=== PATIENT | female | born 1945 | race African-American/Black ===

== ENCOUNTER 2019-03-18 00:21 | Emergency (ER) | payer BC, MEDICARE ==
[2019-03-18] MEDS ORDERED: Proparacaine 0.5% Opth 15 ML BOT ONE (01:03)
[2019-03-18] MEDS ORDERED: Metoclopramide HCl 10 MG/2 ML VIAL ONE (01:03)
[2019-03-18] MEDS ORDERED: diphenhydrAMINE 50 MG/ML VIAL ONE (01:03)
[2019-03-18 01:15] LABS: #Basophils 0.1 thou/uL (0.0-0.2); #Eosinphils 0.2 thou/uL (0.0-0.7); #Lymphocytes 4.5 thou/uL (1.20-3.40); #Monocytes 0.9 thou/uL (0.11-0.59); #Neutrophils 5.6 thou/uL (1.40-6.50); %Basophils 1.1 % (0.0-1.0); %Eosinophils 1.7 % (0.0-10.0); %Lymphocytes 39.8 % (21.0-51.0); %Monocytes 8.2 % (0.0-10.0); %Neutrophils 49.2 % (42.0-75.0); Hemoglobin 13.4 g/dL (12.0-16.0); Mean Corpuscular HGB CONC 33.2 g/dL (32.0-36.0); Mean Corpuscular Hemoglobin 30.9 pg (27.0-31.0); Mean Corpuscular Volume 93.1 fL (78.0-98.0); Mean Platelet Volume 7.4 fL (7.4-10.4); Platelet Count 236 thou/uL (130-400); RBC Distribution Width 13.9 % (11.5-14.5); Red Blood Cell (RBC) Count 4.34 mill/uL (4.20-5.40); White Blood Cell (WBC) Count 11.4 thou/uL (4.8-10.8)
[2019-03-18 01:35] LABS: ALT (SGPT) 22 U/L (8-55); AST (SGOT) 22 U/L (5-34); Albumin 4.1 g/dL (3.4-4.8); Alkaline Phosphatase 112 U/L (40-150); Anion Gap 14 mmol/L (10-20); BUN (Urea Nitrogen) 21 mg/dL (9.8-20.1); Bilirubin, Total 0.4 mg/dL (0.2-1.2); Calc. Creatinine Clearance 0 mL/min (70-130); Calcium 10.3 mg/dL (7.8-10.44); Carbon Dioxide 26 mmol/L (23-31); Chloride 106 mmol/L (98-107); Estimated GFR-MDRD 72; Globulin 3.7 g/dL (2.4-3.5); Glucose 113 mg/dL (83-110); Potassium 4.3 mmol/L (3.5-5.1); Protein, Total 7.8 g/dL (6.0-8.3); Sodium 142 mmol/L (136-145)
--- NOTE | 2019-03-18 08:25 | CT ---
PRELIMINARY REPORT/[facility]/EMERGENCY AFTER HOURS PROCEDURE: EXAM: CT Head Without Contrast EXAM DATE/TIME: 03/18/2019 1:14 AM CLINICAL HISTORY: 73 years old, female; Pain; Patient HX: Headache for 2 weeks with nausea. No vomiting TECHNIQUE: Imaging protocol: Axial computed tomography images of the head/brain without contrast. COMPARISON: No relevant prior studies available. FINDINGS: Brain: No evidence of acute large vessel infarction. No evidence of acute intracranial hemorrhage, ex traxial fluid or midline shift. Mild low density changes within the white matter bilaterally. Cerebel lum atrophic; otherwise, posterior fossa structures within normal limits. 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 Ventricles: Normal. No ventriculomegaly. Bones/joints: Unremarkable. No acute fracture. Sinuses: Visualized sinuses are unremarkable. No acute sinusitis. Mastoid air cells: Visualized mastoid air cells are unremarkable. No mastoid effusion. Soft tissues: Unremarkable. IMPRESSION: 1. No evidence of acute large vessel infarction. 2. No evidence of acute intracranial hemorrhage, extraxial fluid or midline shift. 3. 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 Thank you for allowing us to participate in the care of your patient. Dictated and Authenticated by: Catalina Montaño MD 03/18/2019 1:24 AM Central Time ([place] & [place]) FINAL REPORT EMERGENCY AFTER HOURS CT BRAIN WITHOUT CONTRAST: Date: 03/18/19 FINDINGS: I agree with the preliminary report provided by [facility]. There is more accentuation of a small subcortic al white matter hypodensity seen within the left frontal lobe on the comparison examination dated 08/28. There has been interval development of bilateral lacunar infarcts involving the cerebellar hem isphere. Mild chronic small vessel white matter ischemic change has progressed from the prior exam. S eptum pellucidum and third ventricle are midline. No intracranial hemorrhage is evident. Basilar cist erns are patent. Mastoid air cells are clear. Paranasal sinuses are clear. Skull is intact. IMPRESSION: I agree with the preliminary report provided. 1. No definite acute intracranial abnormality. 2. Worsening microvascular ischemic change within the cerebral hemispheres and bilateral cerebellum. POS:
== END 2019-03-18 02:28 | disposition home or self-care (01) ==
LOC: ERS 00:21
DX: R51 Headache (principal)
CPT/HCPCS: 70450; 80053; 85025; 93005; 96365; J1200; J2765

== ENCOUNTER 2020-12-10 14:16 | Outpatient (CLI) | payer MEDICARE ==
--- NOTE | 2020-12-10 15:09 | MMO ---
Bilateral MAMMO Bilat Screen [facility]. CLINICAL HISTORY: Patient is 74 years old and is seen for screening. The patient has no family history of breast cancer. 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 The patient has a history of right Lumpectomy - malignant. VIEWS: The views performed were: bilateral craniocaudal with tomosynthesis and bilateral mediolateral oblique with tomosynthesis. FILMS COMPARED: The present examination has been compared to prior imaging studies performed at [facility] on 12/07/2019, and at [facility] on 04/16/2016, 04/17/2017 and 05/24/2018. This study has been interpreted with the assistance of computer-aided detection. MAMMOGRAM FINDINGS: There are scattered fibroglandular densities. There is an area of architectural distortion with associated post-surgical scar seen in the right breast. There are no suspicious masses, suspicious calcifications, or new areas of architectural distortion. IMPRESSION: A ROUTINE FOLLOW-UP MAMMOGRAM IN 1 YEAR IS RECOMMENDED. THE RESULTS OF THIS EXAM WERE SENT TO THE PATIENT. ACR BI-RADS Category 2 - Benign finding MAMMOGRAPHY NOTE: 1. A negative mammogram report should not delay a biopsy if a dominant of clinically suspicious mass is present. 2. Approximately 10% to 15% of breast cancers are not detected by mammography. 3. Adenosis and dense breasts may obscure an underlying neoplasm. Reported by: AVANI AVILA MD Electonically Signed: [id number]
== END 2020-12-10 14:17 | disposition home or self-care (01) ==
LOC: BICMAMMO 14:16
PROVIDERS: ATTEND Internal Medicine
DX: Z12.31 Encounter for screening mammogram for malignant neoplasm of breast (principal); Z86.000 Personal history of in-situ neoplasm of breast; Z98.890 Other specified postprocedural states
CPT/HCPCS: 77063; 77067